=== PATIENT | female | born 1960 | race Asian ===

== ENCOUNTER 2023-03-04 14:46 | Outpatient (AMB) | payer OTHER, SELFPAY ==
--- NOTE | 2023-03-04 15:07 | A.OFFVIS_ITS ---
Intake Vital Signs 03/04/23 15:08 Height 5 ft 6 in Weight 240 lb BMI 38.7 BP 132/70 Blood Pressure Location Lt brachial Position Sitting Pulse 90 Pulse Source Pulse Oximeter Pulse Oximetry (%) 98 Oxygen Delivery Method Room Air Intake Visit Reasons: chronic cough Technical Services Rep Required: No Allergies No Known Allergies Allergy (Verified 03/04/23 15:11) HPI HPI Comments History of Present Illness Details The patient is here for pulmonary evaluation. The patient is a 62 year woman previously healthy presenting with worsening cough and also difficulty breathing. Apparently the patient states that back in September she went to [facility] when she was there she started having a coughing fit. Subsequently after that she flew back to the [facility] and she still continued to have episodes. Seem that she would have episodes of stuttering difficult to speak sometimes losing her voice. This would happen mostly if she was talking to somebody. And then sometimes she will just have coughing episodes. She would also have episodes of shortness of breath. That will happen all the time. The patient states she had an x-ray without any significant findings per report. In addition to that she says that she had allergy testing at some point demonstrating no significant findings. Therefore hold off on imaging at this time. On brief examination appears that she does have component of laryngeal spasms or vocal cord dysfunction that may resulting in phonation issues. In addition to that I did appreciate a prolonged expiratory phase and some wheezing on examination. Therefore I did provide her with a DuoNeb treatment in the office which definitely improve her wheezing and also some of the shortness of breath. So I did start her on a long-acting beta agonist with inhaled corticosteroid comb[place] nation inhaler in addition to that we can try some Tessalon Perles as needed for cough. I do believe that she needs some type of speech therapy at this time. Will start with that speech therapy and also pulmonary function studies. If the patient is no better consider bronchoscopy or referral to ENT for probe. [facility] Medical History (Updated 03/04/23 @ 22:49 by Gus Bae MD) Asthma Vocal cord dysfunction Social History (Updated 03/04/23 @ 15:14 by PATTI Viera) Patient Tobacco Use Status: Former Tobacco user Tobacco use type: Cigarette Years Smoked: 20 Years Review of Systems Const Denies fever(s) Eyes Reports no additional complaints ENT Reports change in voice and Denies throat swelling Card Denies chest pain and Reports dyspnea on exertion Resp Reports cough and Reports dyspnea on exertion GI Reports no additional complaints Musc Reports no additional complaints Skin/Breast Denies rash Reddy/Lymph Denies lymphadenopathy Aller/Immun Denies throat swelling Physical Exam Vital Signs: Last Vital Signs Pulse 90 03/04/23 15:08 BP 132/70 03/04/23 15:08 Pulse Ox 98 03/04/23 15:08 Oxygen Delivery Method Room Air 03/04/23 15:08 BMI result Body Mass Index 38.7 Const General: comfortable HEENT Head: Yes normocephalic Neck Neck: Yes supple Chest Chest palpation & inspection: normal inspection of the chest Resp Effort & Inspection: normal respiratory effort Auscultation: wheezes and diminished lung sounds Cardio Heart sounds: S1 normal heart sound present and S2 normal heart sound present GI Palpation (GI): Soft to palpation Skin General skin exam: no rashes or lesions noted Extrem General: Yes no clubbing, cyanosis or edema Psych Appearance: well kempt Office Procedures Nebulizer Treatment Nebulizer Treatment [id number]/MDI RX initial, or Nebulizer Subsequent Treatment Office Meds ipratropium 0.5 mg-albuterol 3 mg (2.5 mg base)/3 mL nebulization soln Performing Provider: Gus Bae MD Performing Location: [facility] [place] [facility] Administered by: Liss Mchugh LPN on 03/04/23 15:30 Dose Route Admin Location Dispensed Lot Number Expiration Date NDC [employer] Rec[employer]iter 3 mL inhalation 3 mL [id number] 08/14/24 9998-5617-05 [facility] Assessment & Plan Assessment & Plan (1) Cough: Code(s): R05.9 - Cough, unspecified Qualifiers: Cough type: chronic Qualified Code(s): R05.3 - Chronic cough (2) Vocal cord dysfunction: Code(s): J38.3 - Other diseases of vocal cords (3) Asthma: Code(s): J45.909 - Unspecified asthma, uncomplicated Qualifiers: Asthma severity: moderate Asthma persistence: persistent Asthma complication type: uncomplicated Qualified Code(s): J45.40 - Moderate persistent asthma, uncomplicated Plan start Wixela Benzonates as needed PFTs Speech therapy continue ENT referral for laryngoscopy F/U 4-6 weeks Orders: Orders AMB Nebulizer Treatment Today R05.9 - Cough, unspecified PFT pulmonary function test Today R05.3 - Chronic cough Referrals Speech and Hearing Referral J38.3 - Other diseases of vocal cords Medications: New benzonatate 200 mg PO BID 30 days PRN 60 caps 6RF cough fluticasone propion-salmeterol 250-50 mcg/dose (Wixela Inhub) 1 inh inhalation Q12H 30 days 60 ea 11RF Coding Level of Care Code New Pt Level 4 (25860) Diagnoses Chronic cough R05.3 Cough type: chronic Vocal cord dysfunction J38.3 Moderate persistent asthma without complication J45.40 Asthma severity: moderate Asthma persistence: persistent Asthma complication type: uncomplicated CPT Codes Nebulizer Treatment - Nebulizer Treatment, initial or subsequent: 17398- Nebulizer/MDI RX initial, or Nebulizer Subsequent Treatment ([id number]) Time Spent (min) 40
[2023-03-04 15:08] VITALS: BP 132/70; PULSE 90; O2SAT 98; BMI 38.7
== END 2023-03-04 15:56 | disposition home or self-care (01) ==
PROVIDERS: PCP Internal Medicine Endocrinology, Diabetes & Metabolism; Referring Provider Internal Medicine Endocrinology, Diabetes & Metabolism; Visit Provider Hospitalist
DX: R05.3 Chronic cough (principal); J38.3 Other diseases of vocal cords; J45.40 Moderate persistent asthma, uncomplicated
CPT/HCPCS: 99204

== ENCOUNTER → 2023-03-04 14:46 | Outpatient (BNVA) | payer OTHER, SELFPAY | PROVIDERS: PCP Internal Medicine Endocrinology, Diabetes & Metabolism; Visit Provider Hospitalist | DX: J45.40 Moderate persistent asthma, uncomplicated (principal); R05.3 Chronic cough; J38.3 Other diseases of vocal cords | CPT/HCPCS: 94640 ==

== ENCOUNTER 2023-03-20 09:50 | Outpatient (REF) | payer OTHER, SELFPAY ==
[2023-03-20 08:21] VITALS: PULSE 82; RESP 14; O2SAT 97
--- NOTE | 2023-03-20 13:33 | PFT_ITS ---
Indication: Cough Spirometry [FEV1 to FVC 82%; FEV1 2.1 L; FVC 2.54 L. No significant response to bronchodilators noted. Maximum voluntary ventilation 60% predicted.] Lung Volumes [Total lung capacity 72% predicted] Diffusion Capacity [DLCO 82% predicted] Comparisons [None] Interpretation [No obstructive ventilatory defects. No significant response to bronchodilators noted. This however small decrease in the maximum voluntary ventilation which could be secondary to deconditioning although can not rule out neuromuscular disease. The patient also has a mild restrictive ventilatory defect. Need to consider underlying parenchymal lung conditions and or neuromuscular conditions. Diffusing capacity is within normal limits. Clinical correlation warranted.] MTDD
== END 2023-03-20 09:51 | disposition home or self-care (01) ==
LOC: HO.RESP 09:50
PROVIDERS: PCP Internal Medicine Endocrinology, Diabetes & Metabolism; Visit Provider Hospitalist
DX: R05.3 Chronic cough (principal)
CPT/HCPCS: 94010; 94640; 94727; 94729

== ENCOUNTER → 2023-03-20 13:33 | Outpatient (BNV) | payer OTHER, SELFPAY | PROVIDERS: PCP Internal Medicine Endocrinology, Diabetes & Metabolism; Visit Provider Hospitalist | DX: R05.3 Chronic cough (principal) | CPT/HCPCS: 94060; 94727; 94729 ==

== ENCOUNTER 2023-04-16 14:29 | Outpatient (AMB) | payer OTHER, SELFPAY ==
[2023-04-16 14:36] VITALS: PULSE 92; O2SAT 96; BMI 38.7
--- NOTE | 2023-04-16 14:36 | MHC.OFFVIS ---
Intake Vital Signs 04/16/23 14:36 Height 5 ft 6 in Weight 240 lb BMI 38.7 Pulse 92 Pulse Source Pulse Oximeter Pulse Oximetry (%) 96 Oxygen Delivery Method Room Air Intake Visit Reasons: chronic cough Computer Systems Support Specialist Required: No Allergies No Known Allergies Allergy (Verified 04/16/23 14:37) HPI HPI Comments History of Present Illness Details The patient is a 62 year woman previously healthy presenting with worsening cough and also difficulty breathing. Apparently the patient states that back in September she went to [facility] when she was there she started having a coughing fit. Subsequently after that she flew back to the [facility] and she still continued to have episodes. Seem that she would have episodes of stuttering difficult to speak sometimes losing her voice. This would happen mostly if she was talking to somebody. And then sometimes she will just have coughing episodes. She would also have episodes of shortness of breath. That will happen all the time. The patient states she had an x-ray without any significant findings per report. In addition to that she says that she had allergy testing at some point demonstrating no significant findings. Therefore hold off on imaging at this time. On brief examination appears that she does have component of laryngeal spasms or vocal cord dysfunction that may resulting in phonation issues. In addition to that I did appreciate a prolonged expiratory phase and some wheezing on examination. Therefore I did provide her with a DuoNeb treatment in the office which definitely improve her wheezing and also some of the shortness of breath. So I did start her on a long-acting beta agonist with inhaled corticosteroid combination inhaler in addition to that we can try some Tessalon Perles as needed for cough. I do believe that she needs some type of speech therapy at this time. Will start with that speech therapy and also pulmonary function studies. If the patient is no better consider bronchoscopy or referral to ENT for probe. 04/16/2023 the patient is here for a pulmonary follow-up visit. Overall the patient is doing about the same. She is still having difficulty with her speech and also coughing. Moderate severity. She did try the inhaler without any significant improvement. The patient did undergo blood work without any significant findings either. She was not able to have the speech therapy because it was during working hours and was hard for her to take time off. She did undergo pulmonary function studies which we personally reviewed. It appears that she has a restrictive ventilatory defect consistent with restrictive lung disease. She also had a chest x-ray back in the fall 2022 which was unremarkable. Based on the fact that she still continues have underlying symptoms now with abnormal PFTs and a nondiagnostic test x-ray will request a CT scan of the chest. I explained to her that if the CT scans abnormal then will have to consider a bronchoscopy to better address the airway issues. If her CT scan is normal we can either refer her to ENT For laryngoscopy. The patient also would like to participate in the speech therapy but hoping to see the supplies that she can go that has more availability. Will readdress that after the CT scan. [facility] Medical History (Updated 04/16/23 @ 15:06 by Gus Bae MD) Chronic restrictive lung disease Asthma Vocal cord dysfunction Social History (Updated 03/04/23 @ 15:14 by PATTI Viera) Patient Tobacco Use Status: Former Tobacco user Tobacco use type: Cigarette Years Smoked: 20 Years Review of Systems Const Denies fever(s) Eyes Reports no additional complaints ENT Reports change in voice and Denies throat swelling Card Denies chest pain and Reports dyspnea on exertion Resp Reports cough and Reports dyspnea on exertion GI Reports no additional complaints Musc Reports no additional complaints Skin/Breast Denies rash Reddy/Lymph Denies lymphadenopathy Aller/Immun Denies throat swelling Physical Exam Vital Signs: Last Vital Signs Pulse 92 04/16/23 14:36 Pulse Ox 96 04/16/23 14:36 Oxygen Delivery Method Room Air 04/16/23 14:36 BMI result Body Mass Index 38.7 Const General: comfortable HEENT Head: Yes normocephalic Neck Neck: Yes supple Chest Chest palpation & inspection: normal inspection of the chest Resp Effort & Inspection: normal respiratory effort Auscultation: wheezes and diminished lung sounds Cardio Heart sounds: S1 normal heart sound present and S2 normal heart sound present GI Palpation (GI): Soft to palpation Skin General skin exam: no rashes or lesions noted Extrem General: Yes no clubbing, cyanosis or edema Psych Appearance: well kempt Assessment & Plan Assessment & Plan (1) Cough: Code(s): R05.9 - Cough, unspecified Qualifiers: Cough type: chronic Qualified Code(s): R05.3 - Chronic cough (2) Vocal cord dysfunction: Code(s): J38.3 - Other diseases of vocal cords (3) Asthma: Code(s): J45.909 - Unspecified asthma, uncomplicated Qualifiers: Asthma complication type: uncomplicated Asthma persistence: persistent Asthma severity: moderate Qualified Code(s): J45.40 - Moderate persistent asthma, uncomplicated (4) Chronic restrictive lung disease: Code(s): J98.4 - Other disorders of lung Plan continue Wixela Benzonates as needed Speech therapy CT chest, if abnormal will offer a bronchoscopy ENT referral for laryngoscopy F/U 2-3 months Orders: Orders CT chest wo IV con 04/16/23 J98.4 - Other disorders of lung, R05.9 - Cough, unspecified Referrals Ear/Nose/Throat Referral J38.3 - Other diseases of vocal cords, R05.9 - Cough, unspecified Coding Level of Care Code Est Pt Level 4 (29352) Diagnoses Chronic cough R05.3 Cough type: chronic Vocal cord dysfunction J38.3 Moderate persistent asthma without complication J45.40 Asthma complication type: uncomplicated Asthma persistence: persistent Asthma severity: moderate Chronic restrictive lung disease J98.4 Time Spent (min) 18
== END 2023-04-16 15:15 | disposition home or self-care (01) ==
PROVIDERS: PCP Internal Medicine Endocrinology, Diabetes & Metabolism; Visit Provider Hospitalist
DX: R05.3 Chronic cough (principal); J38.3 Other diseases of vocal cords; J45.40 Moderate persistent asthma, uncomplicated; J98.4 Other disorders of lung
CPT/HCPCS: 99214

== ENCOUNTER → 2023-04-16 14:29 | Outpatient (BNVA) | payer OTHER, SELFPAY | PROVIDERS: PCP Internal Medicine Endocrinology, Diabetes & Metabolism; Visit Provider Hospitalist | DX: R05.9 Cough, unspecified (principal) ==

== ENCOUNTER 2023-05-24 16:21 | Outpatient (REF) | payer OTHER, SELFPAY ==
--- NOTE | ~2023-05-24 | CT_ITS ---
EXAMINATION: CT CHEST WITHOUT CONTRAST CLINICAL INFORMATION: Cough COMPARISON: None available. TECHNIQUE: Multidetector volumetric CT imaging of the chest was done. Axial MIP volume rendering provided. Sagittal and coronal reformatted images were obtained. This CT examination was performed using dose optimization techniques as appropriate, variously including the following: *Automated exposure control *Adjustment of mA and/or kV according to patient size (this includes techniques or standardized protocols for targeted exams where dose is matched to indication/reason for exam; i.e. extremities or head) *Use of iterative reconstruction technique DLP: 225 mGy-cm FINDINGS: LUNGS: Right middle lobe and left upper lobe lingular linear opacities likely reflect atelectasis versus scarring. PLEURA: No pleural effusion. MEDIASTINUM: No cardiomegaly. Aorta and pulmonary artery are normal in caliber. No mediastinal adenopathy. Lack of IV contrast limits evaluation for hilar adenopathy. CORONARY ARTERY CALCIFICATION: No coronary artery calcification appreciated. CHEST WALL/AXILLA: No axillary or internal mammary lymphadenopathy. UPPER ABDOMEN: Unremarkable. OSSEOUS STRUCTURES: Unremarkable. CT/CT chest wo IV con IMPRESSION: Right middle lobe and left upper lobe lingular linear opacities likely reflect atelectasis versus scarring.
== END 2023-05-24 16:22 | disposition home or self-care (01) ==
LOC: HO.CT 16:21
PROVIDERS: Visit Provider Hospitalist
DX: J98.4 Other disorders of lung (principal); R05.9 Cough, unspecified
CPT/HCPCS: 71250

== ENCOUNTER 2023-07-22 14:39 | Outpatient (AMB) | payer OTHER, SELFPAY ==
[2023-07-22 14:49] VITALS: PULSE 75; O2SAT 96; BMI 37.1
--- NOTE | 2023-07-22 14:49 | MHC.OFFVIS ---
Vital Signs 07/22/23 14:49 Height 5 ft 6 in Weight 230 lb BMI 37.1 Pulse 75 Pulse Source Pulse Oximeter Pulse Oximetry (%) 96 Oxygen Delivery Method Room Air Intake Visit Reasons: chronic cough Clinical Rehab Liaison Required: No Allergies No Known Allergies Allergy (Verified 07/22/23 14:50) HPI Comments Details: The patient is a 63 year woman previously healthy presenting with worsening cough and also difficulty breathing. Apparently the patient states that back in September she went to [facility] when she was there she started having a coughing fit. Subsequently after that she flew back to the [facility] and she still continued to have episodes. Seem that she would have episodes of stuttering difficult to speak sometimes losing her voice. This would happen mostly if she was talking to somebody. And then sometimes she will just have coughing episodes. She would also have episodes of shortness of breath. That will happen all the time. The patient states she had an x-ray without any significant findings per report. In addition to that she says that she had allergy testing at some point demonstrating no significant findings. Therefore hold off on imaging at this time. On brief examination appears that she does have component of laryngeal spasms or vocal cord dysfunction that may resulting in phonation issues. In addition to that I did appreciate a prolonged expiratory phase and some wheezing on examination. Therefore I did provide her with a DuoNeb treatment in the office which definitely improve her wheezing and also some of the shortness of breath. So I did start her on a long-acting beta agonist with inhaled corticosteroid combination inhaler in addition to that we can try some Tessalon Perles as needed for cough. I do believe that she needs some type of speech therapy at this time. Will start with that speech therapy and also pulmonary function studies. If the patient is no better consider bronchoscopy or referral to ENT for probe. 04/16/2023 the patient is here for a pulmonary follow-up visit. Overall the patient is doing about the same. She is still having difficulty with her speech and also coughing. Moderate severity. She did try the inhaler without any significant improvement. The patient did undergo blood work without any significant findings either. She was not able to have the speech therapy because it was during working hours and was hard for her to take time off. She did undergo pulmonary function studies which we personally reviewed. It appears that she has a restrictive ventilatory defect consistent with restrictive lung disease. She also had a chest x-ray back in the fall 2022 which was unremarkable. Based on the fact that she still continues have underlying symptoms now with abnormal PFTs and a nondiagnostic test x-ray will request a CT scan of the chest. I explained to her that if the CT scans abnormal then will have to consider a bronchoscopy to better address the airway issues. If her CT scan is normal we can either refer her to ENT For laryngoscopy. The patient also would like to participate in the speech therapy but hoping to see the supplies that she can go that has more availability. Will readdress that after the CT scan. 07/22/2023 the patient is here for a pulmonary follow-up visit. Overall she has doing a little better. Her cough is less in frequency. She does respond well to Tessalon Perles. The patient did have the Wixela inhaler but she is that once and then she threw it out. She did not realize she was supposed to continue taking it. I will recently to the pharmacy. In the meantime she does have an appointment I believe with ENT sometime in December. I believe that I will be helpful in order to assess for vocal cord dysfunction and performing a laryngoscopy at the office will be great. She did have a CT scan of the chest that I personally reviewed with her. The patient does not have anything concerning. She does have some areas of atelectasis bilaterally. This areas are small and unlikely resulting in her symptoms. [facility] Medical History (Updated 04/16/23 @ 15:06 by Gus Bae MD) Chronic restrictive lung disease Asthma Vocal cord dysfunction Social History (Updated 03/04/23 @ 15:14 by PATTI Viera) Patient Tobacco Use Status: Former Tobacco user Tobacco use type: Cigarette Years Smoked: 20 Years Review of Systems Const Denies fever(s) Eyes Reports no additional complaints ENT Reports change in voice and Denies throat swelling Card Denies chest pain and Reports dyspnea on exertion Resp Reports cough and Reports dyspnea on exertion GI Reports no additional complaints Musc Reports no additional complaints Skin/Breast Denies rash Reddy/Lymph Denies lymphadenopathy Aller/Immun Denies throat swelling Physical Exam Vital Signs: Last Vital Signs Pulse 75 07/22/23 14:49 Pulse Ox 96 07/22/23 14:49 Oxygen Delivery Method Room Air 07/22/23 14:49 BMI result Body Mass Index 37.1 Const General: comfortable HEENT Head: Yes normocephalic Neck Neck: Yes supple Chest Chest palpation & inspection: normal inspection of the chest Resp Effort & Inspection: normal respiratory effort Auscultation: no wheezes and diminished lung sounds Cardio Heart sounds: S1 normal heart sound present and S2 normal heart sound present GI Palpation (GI): Soft to palpation Skin General skin exam: no rashes or lesions noted Extrem General: Yes no clubbing, cyanosis or edema Psych Appearance: well kempt Assessment & Plan Assessment & Plan (1) Cough: Code(s): R05.9 - Cough, unspecified Category: Medical Qualifiers: Cough type: chronic Qualified Code(s): R05.3 - Chronic cough (2) Vocal cord dysfunction: Code(s): J38.3 - Other diseases of vocal cords Category: Medical (3) Asthma: Code(s): J45.909 - Unspecified asthma, uncomplicated Category: Medical Qualifiers: Asthma complication type: uncomplicated Asthma persistence: persistent Asthma severity: moderate Qualified Code(s): J45.40 - Moderate persistent asthma, uncomplicated (4) Chronic restrictive lung disease: Code(s): J98.4 - Other disorders of lung Category: Medical Plan continue Wixela Benzonates as needed Speech therapy, will cancel, pt decline ENT referral for laryngoscopy F/U 6 months Medications: Refilled fluticasone propion-salmeterol 250-50 mcg/dose (Wixela Inhub) 1 inh inhalation Q12H 60 ea 11RF 30 days Coding Level of Care Code Est Pt Level 4 (69339) Diagnoses Chronic cough R05.3 Cough type: chronic Vocal cord dysfunction J38.3 Moderate persistent asthma without complication J45.40 Asthma complication type: uncomplicated Asthma persistence: persistent Asthma severity: moderate Chronic restrictive lung disease J98.4 Time Spent (min) 17
== END 2023-07-22 15:20 | disposition home or self-care (01) ==
PROVIDERS: PCP Internal Medicine Endocrinology, Diabetes & Metabolism; Visit Provider Hospitalist
DX: R05.3 Chronic cough (principal); J38.3 Other diseases of vocal cords; J45.40 Moderate persistent asthma, uncomplicated; J98.4 Other disorders of lung
CPT/HCPCS: 99214

== ENCOUNTER → 2023-07-22 14:39 | Outpatient (BNVA) | payer OTHER, SELFPAY | PROVIDERS: PCP Internal Medicine Endocrinology, Diabetes & Metabolism; Visit Provider Hospitalist | DX: R05.9 Cough, unspecified (principal); J38.3 Other diseases of vocal cords; J98.4 Other disorders of lung ==